=== PATIENT | male | born 1955 | race Caucasian/White ===

== ENCOUNTER 2017-10-14 12:01 | Emergency (ER) | payer BC ==
[2017-10-14 12:18] VITALS: BP 189/107; PULSE 76; TEMP 98.2; BMI 24.3
--- NOTE | 2017-10-14 12:23 | PDOC ---
History of Present Illness - General Chief Complaint: Injury Stated Complaint: right pain s/p injury Time Seen by Provider: 10/14/17 12:07 - History of Present Illness Initial Comments: 10/14/17 12:38 62yo male presents ambulatory from his soccer game for eval of R thumb pain. Pt states he was playing soccer when he hit his R hand on another player. Denies the thumb being bent backwards or forwards. Denies it getting jammed. Denies wrist pain. Denies pain the rest of the fingers. Has pinpoint pain to the R proximal MCP of the thumb. Radial pulse intact, sensation intact. muscle strength intact. Limited ROM with flexion of the thumb secondary to pain. Pt states he took aleve [employer] PMHx: recently has htn from stress, no meds PSHx: denies Allergies: denies 10/14/17 12:47 Past History - Past Medical History Allergies/Adverse Reactions: Allergies Allergy/AdvReac Type Severity Reaction Status Date / Time No Known Allergies Allergy Verified 10/14/17 12:08 Home Medications: Ambulatory Orders NK [No Known Home Medication] 10/14/17 COPD: No Other medical history: pt denies - Suicide/Smoking/Psychosocial Hx Smoking History: Never smoked Hx Alcohol Use: No Drug/Substance Use Hx: No Substance Use Type: None Review of Systems - Review of Systems Able to Perform ROS?: Yes Is the patient limited Qatari proficient: No Constitutional: No: Chills, Fever HEENTM: No: Nose Congestion, Throat Pain Respiratory: No: Cough, Shortness of Breath Cardiac (ROS): No: Chest Pain, Irregular Heart Rate ABD/GI: No: Diarrhea, Nausea, Vomiting : No: Burning, Dysuria Musculoskeletal: Yes: Joint Pain. No: Back Pain Integumentary: No: Bruising, Erythema Neurological: No: Headache, Numbness All Other Systems: Reviewed and Negative *Physical Exam - Vital Signs Last Vital Signs Temp Pulse Resp BP Pulse Ox 98.2 F 76 16 189/107 98 10/14/17 12:02 10/14/17 12:02 10/14/17 12:02 10/14/17 12:02 10/14/17 12:02 - Physical Exam General Appearance: Yes: Nourished, Appropriately Dressed. No: Apparent Distress HEENT: positive: EOMI, Normal Voice. negative: Rhinorrhea Neck: positive: Supple. negative: Tender Respiratory/Chest: positive: Lungs Clear, Normal Breath Sounds Cardiovascular: positive: Regular Rhythm, S1, S2 Gastrointestinal/Abdominal: positive: Normal Bowel Sounds, Flat, Soft. negative : Guarding, Rebound, Tenderness Musculoskeletal: positive: Normal Inspection, Other (ambulatory with a steady gait) Extremity: positive: Normal Capillary Refill, Normal Inspection, Other (ttp over R proximal MCP of thumb, limited ROM with flexion of thumb secondary to pain, brisk cap refill, sensation intact, muscle strength intact). negative: Calf Tenderness Integumentary: positive: Normal Color, Dry, Warm Neurologic: positive: deputy clerk II-XII NML intact, Fully Oriented, Normal Mood/Affect , Motor Strength 5/5, Other (ambulatory with a steady gait) Procedures - Splinting Splint Location: Right: Finger Pre-Proc Neuro Vasc Exam: normal Hand-Made Type: orthoglass Splint Type: Yes: Thumb Spica (R hand) Post-Proc Neuro Vasc Exam: normal Karlos Bandage: 2", 4" Sling: Yes Complications: No Progress: 10/14/17 13:41 pt tolerated the procedure well Medical Decision Making - Medical Decision Making 10/14/17 12:44 a/p: 62yo male who is RHD with R thumb pain after playing soccer -will check xray -took aleve [employer] -will give tylenol -suspect sprain and no fx 10/14/17 13:41 pt with proximal Metacarpal fracture of thumb. Placed in thumb spica splint. will give hand and ortho follow up. Pain controlled with tylenol and aleve. Given splint. Discussed all reasons to return to the ED and need for follow up. Discussed RICE. *DC/Admit/Observation/Transfer Diagnosis at time of Disposition: Fracture of metacarpal base, thumb - Discharge Dispostion Disposition: HOME Condition at time of disposition: Stable Admit: No - Referrals Referrals: Domenico Araya MD [Staff Physician] - Jonathan Gerber MD [Staff Physician] - - Patient Instructions Printed Discharge Instructions: How to Use a Sling, DI for a Hand Fracture Additional Instructions: Please keep the hand elevated. Please make an appointment to follow up with the hand surgeon or the orthopedic surgeon. Please take tylenol or motrin for pain. Please return to the ED with any further complaints. Please apply ice - 20 min on and 20 min off. Please do not get the splint wet. - Post Discharge Activity
[2017-10-14] MEDS ORDERED: ACETAMINOPHEN 325 MG TABLET (FP) PO ONE (12:26)
[2017-10-14] MEDS ORDERED: ACETAMINOPHEN 325 MG TABLET (FP) ONE (12:44)
== END 2017-10-14 14:00 | disposition home or self-care (01) ==
LOC: FER 12:01
PROC: 2W3JX1Z Immobilization of Right Finger using Splint (ICD-10-PCS; principal; 2017-10-14)
DX: S62.234A Other nondisplaced fracture of base of first metacarpal bone, right hand, initial encounter for closed fracture (principal); W51.XXXA Accidental striking against or bumped into by another person, initial encounter; Y93.66 Activity, soccer; Y92.9 Unspecified place or not applicable
CPT/HCPCS: 73110-TC-RT; 73130-TC-RT; 99283-25